=== PATIENT | male | born 2000 | race Two or more races ===

== ENCOUNTER 2023-09-15 12:16 | Emergency (ER) | payer MEDICAID ==
[~2023-09-15] VITALS: Ht 165.1 cm; Wt 68.0 kg
[2023-09-15 12:58] VITALS: BP 118/76; PULSE 98; RESP 18; TEMP 98; O2SAT 99
[2023-09-15] MEDS: ACETAMINOPHEN 500 MG TAB PO ONE ×2 (13:51→13:53)
[2023-09-15] MEDS: IBUPROFEN 600 MG TAB PO ONE ×2 (13:51→13:53)
[2023-09-15] MEDS ORDERED: NABU-72 PO (15:37)
== END 2023-09-15 15:47 | disposition home or self-care (01) ==
LOC: ER 12:16
DX: R51.9 Headache, unspecified (principal); G93.0 Cerebral cysts
CPT/HCPCS: 70450